=== PATIENT | male | born 1995 | race African-American/Black ===

== ENCOUNTER 2017-09-18 16:46 | Emergency (ER) | payer MEDICARE, MEDICAID ==
[~2017-09-18] VITALS: Ht 180.3 cm; Wt 117.3 kg
[~2017-09-18 16:46] MED LIST: NOCURR
[2017-09-18 16:49] VITALS: BP 145/99
== END 2017-09-18 17:10 | disposition home or self-care (01) ==
LOC: EMS 16:47
DX: B36.9 Superficial mycosis, unspecified (principal); F84.0 Autistic disorder
CPT/HCPCS: 99283